=== PATIENT | female | born 1950 | race Caucasian/White ===

== ENCOUNTER 2019-01-12 08:24 | Observation (INO) | payer MEDICARE ==
[~2019-01-12] VITALS: Ht 171.4 cm; Wt 88.9 kg
[~2019-01-12 08:24] MED LIST: CELEXA40 MG PO; DEPAKOTE500 MG PO; SEROQUEL50 MG PO; SUBOXONE 8 MG-1 EACH PO; WELLBUTRIN XL300 MG PO; Z LITHIUM CARBON; Z.0.SEROQUEL300 MG; Z.0.TEGRETOL200 MG
--- OUTSIDE RECORDS SUMMARY | 2019-01-12 08:27 | XMS REPORT ---
[facility] Address Unknown Phone Unavailable Care Team Providers Care Quotation Checker Name Role Phone Unavailable Unavailable Payers Payer Name Policy Type Policy Number Effective Date Expiration Date Problems This patient has no known problems. Allergies, Adverse Reactions, Alerts Allergy Name Allergy Type Status Severity Reaction(s) Onset Date Inactive Date Treating Clinician Comments No Known Allergies DA Active U 2018-07-28 00:00:00 No Known Allergies DA Active U 2013-11-26 00:00:00 Medications This patient has no known medications. Encounters Start Date/Time End Date/Time Encounter Type Admission Type Attending [facility] Facility Care Department Encounter ID 2018-11-03 00:00:00 2018-11-03 00:00:00 Outpatient [facility] [id number] 2018-10-22 06:58:26 2018-10-22 06:58:26 Outpatient [facility] [id number] 2018-09-22 00:00:00 2018-09-22 00:00:00 Outpatient [facility] [id number] 2018-09-22 00:00:00 2018-09-22 00:00:00 Outpatient [facility] [id number] 2018-09-20 00:00:00 2018-09-20 00:00:00 Outpatient [facility] [id number] 2018-09-17 00:00:00 2018-09-17 00:00:00 Outpatient [facility] [id number] 2018-09-17 00:00:00 2018-09-17 00:00:00 Outpatient [facility] [id number] 2018-09-14 00:00:00 2018-09-14 00:00:00 Outpatient [facility] [id number] 2018-09-06 08:07:2018-09-06 08:07:05 Outpatient [facility] [id number] 2018-08-18 00:00:00 2018-08-18 00:00:00 Outpatient [facility] [id number] 2018-07-13 00:00:00 2018-07-13 00:00:00 Outpatient [facility] [id number] 2018-07-07 00:00:00 2018-07-07 00:00:00 Outpatient [facility] [id number] 2018-07-03 01:08:39 2018-07-03 01:08:39 Emergency [facility] [id number] 2018-06-28 07:49:05 2018-06-28 07:49:05 Outpatient [facility] [id number] 2018-06-23 00:00:00 2018-06-23 00:00:00 Outpatient [facility] [id number] 2018-06-04 16:21:06 2018-06-04 16:21:06 Outpatient [facility] [id number] 2018-05-12 10:20:56 2018-05-12 10:20:56 Outpatient [facility] [id number] 2018-04-02 00:00:00 2018-04-02 00:00:00 Outpatient [facility] [id number] 2018-03-17 00:00:00 2018-03-17 00:00:00 Outpatient [facility] [id number] 2017-12-25 00:00:00 2017-12-25 00:00:00 Outpatient [facility] [id number] 2017-12-22 14:34:24 2017-12-22 14:34:24 Outpatient [facility] [id number] 2017-12-16 07:47:32 2017-12-16 07:47:32 Outpatient [facility] [id number] 2017-11-17 00:00:00 2017-11-17 00:00:00 Outpatient [facility] [id number] 2017-11-17 00:00:00 2017-11-17 00:00:00 Outpatient [facility] [id number] 2017-11-11 00:00:00 2017-11-11 00:00:00 Outpatient [facility] [id number] 2017-10-27 00:00:00 2017-10-27 00:00:00 Outpatient [facility] [id number] 2017-10-27 00:00:00 2017-10-27 00:00:00 Outpatient [facility] [id number] 2017-10-19 00:00:00 2017-10-19 00:00:00 Outpatient [facility] [id number] 2017-10-08 07:46:18 2017-10-08 07:46:18 Outpatient [facility] [id number] 2017-10-06 14:53:02 2017-10-06 14:53:02 Outpatient [facility] [id number] 2017-10-05 00:00:00 2017-10-05 00:00:00 Outpatient [facility] [id number] 2017-09-22 00:00:00 2017-09-22 00:00:00 Outpatient [facility] [id number] 2017-09-15 00:00:00 2017-09-15 00:00:00 Outpatient [facility] [id number] 2017-09-09 00:00:00 2017-09-09 00:00:00 Outpatient [facility] [id number] 2017-09-08 13:09:21 2017-09-08 13:09:21 Outpatient [facility] [id number] 2017-09-07 15:54:06 2017-09-07 15:54:06 Outpatient [facility] [id number] 2017-09-01 13:19:47 2017-09-01 13:19:47 Outpatient [facility] [id number] 2017-08-27 11:54:06 2017-08-27 11:54:06 Outpatient [facility] [id number] 2017-08-19 11:17:47 2017-08-19 11:17:47 Outpatient [facility] [id number] 2017-08-19 10:50:18 2017-08-19 10:50:18 Outpatient [facility] [id number] 2017-08-18 14:48:04 2017-08-18 14:48:04 Outpatient [facility] [id number] 2017-08-17 00:00:00 2017-08-17 00:00:00 Outpatient [facility] [id number] 2017-08-12 00:00:00 2017-08-12 00:00:00 Outpatient [facility] [id number] 2017-08-05 12:19:07 2017-08-05 12:19:07 Outpatient [facility] [id number] 2017-07-20 00:00:00 2017-07-20 00:00:00 Outpatient [facility] [id number] 2017-07-17 09:57:17 2017-07-17 09:57:17 Outpatient [facility] [id number] 2017-07-17 09:22:51 2017-07-17 09:22:51 Outpatient [facility] [id number] 2017-07-17 00:00:00 2017-07-17 00:00:00 Outpatient [facility] [id number] 2017-07-15 00:00:00 2017-07-15 00:00:00 Outpatient [facility] [id number] 2017-07-13 00:00:00 2017-07-13 00:00:00 Outpatient [facility] [id number] 2017-07-07 15:32:56 2017-07-07 15:32:56 Outpatient [facility] [id number] 2017-07-07 14:39:53 2017-07-07 14:39:53 Outpatient [facility] [id number] 2017-07-07 00:00:00 2017-07-07 00:00:00 Outpatient [facility] [id number] 2017-05-13 00:00:00 2017-05-13 00:00:00 Outpatient [facility] [id number]
--- OUTSIDE RECORDS SUMMARY | 2019-01-12 08:27 | XMS REPORT | Clinical Summary ---
Author Author [facility] Organization [facility] Address Unknown Phone Unavailable Care Team Providers Care Gas Analyst Name Role Phone Jun Schofield MD PCP Allergies No Known Allergies Medications End Date Status Medication Sig Dispensed Refills Start Date Active amLODIPine (NORVASC) 5 mg Take 1 tablet 90 tablet 1 tabletIndications: by mouth 6 Essential hypertension daily. Active estrogens, conjugated, Take 1 tablet 75 tablet 1 (PREMARIN) 0.625 mg by mouth 7 tabletIndications: Hot daily Take flashes due to menopause for 25 days of the month, then no medications for 5-6 days, repeat each month. Active citalopram (CELEXA) 20 mg 0 tablet 7 Active divalproex (DEPAKOTE) 250 0 mg delayed release tablet 7 Active lidocaine (LIDODERM) 5 % Apply 1 Patch 30 Patch 0 patchIndications: Chronic to skin as 7 right shoulder pain directed daily Leave patch(es) on for up to 12 hours, then 12 hours off.. Active acetaminophen-codeine Take 1 tablet 30 tablet 1 (TYLENOL/CODEINE #3) by mouth 2 8 300-30 mg per times daily tabletIndications: as needed for Chronic midline low back Pain. pain without sciatica, Chronic right shoulder pain, Chronic neck pain Active buprenorphine-naloxone daily. 0 (SUBOXONE) 8-2 mg film Active omeprazole (PRILOSEC) 20 Take 1 180 capsule 3 mg delayed release capsule by 8 capsuleIndications: mouth 2 times Esophagitis, [place] daily one grade B capsule by mouth 30 minutes before first meal; one capsule by mouth 30 minutes before dinner.. Active polyethylene glycol 8L two day 8000 mL 0 (GOLYTELY) 236-22.74-6.74 golytely 8 -5.86 gram oral bowel prep. solutionIndications: Patient had Family history of colon poor prep cancer requiring with 4L.. screening colonoscopy Active esomeprazole (NEXIUM) 40 Take 1 60 capsule 1 mg delayed release capsule by 8 capsuleIndications: mouth every Gastroesophageal reflux morning disease with esophagitis (before breakfast). 06/04/2018 Discontinued Meloxicam 15 mg Take 1 tablet 90 tablet 1 tabletIndications: by mouth 7 Chronic midline thoracic daily as back pain, Pain in joint needed for of right shoulder Pain. 06/04/2018 Discontinued tiZANidine (ZANAFLEX) 4 Take 1 tablet 60 tablet 1 mg tabletIndications: by mouth 3 7 Pain in joint of right times daily shoulder as needed for Muscle Spasms. 02/04/2018 Discontinued esomeprazole (NEXIUM) 40 Take 1 90 capsule 1 mg delayed release capsule by 8 capsuleIndications: mouth every Gastroesophageal reflux morning disease without (before esophagitis breakfast). 02/04/2018 Discontinued promethazine (PHENERGAN) Take 1 tablet 30 tablet 0 25 mg tabletIndications: by mouth 8 Nausea every 8 hours as needed for up to 7 days for Nausea or Vomiting. 06/04/2018 Discontinued esomeprazole (NEXIUM) 40 Take 1 90 capsule 1 mg delayed release capsule by 8 capsuleIndications: mouth every Gastroesophageal reflux morning disease without (before esophagitis breakfast). 02/11/2018 promethazine (PHENERGAN) Take 1 tablet 30 tablet 0 25 mg tabletIndications: by mouth 8 Nausea every 8 hours as needed for up to 7 days for Nausea or Vomiting. 05/27/2018 gabapentin (NEURONTIN) Take 1 45 capsule 0 100 mg capsule by 8 capsuleIndications: Back mouth 3 times pain daily for 15 days. 09/17/2018 Discontinued polyethylene glycol Add lukewarm 4000 mL 0 (GOLYTELY) 236-22.74-6.74 drinking 8 -5.86 gram oral water to the solutionIndications: fill lita (4 Family history of liters) and colorectal cancer, shake. Drink Constipation, unspecified as directed constipation type by your doctor.. 09/17/2018 Discontinued omeprazole (PRILOSEC) 20 Take 1 90 capsule 2 mg delayed release capsule by 8 capsuleIndications: mouth daily. Gastroesophageal reflux disease, esophagitis presence not specified, Chronic gastritis without bleeding, unspecified gastritis type 06/07/2018 polyethylene glycol Mix 17 grams 527 g 3 (GLYCOLAX) 17 gram/dose into 4 to 8 8 oral powderIndications: ounces of Constipation, unspecified water, juice, constipation type soda, tea or coffee and drink as directed, one time a day. 06/14/2018 promethazine (PHENERGAN) Take 1 tablet 30 tablet 1 25 mg tabletIndications: by mouth 8 Nausea every 8 hours as needed for up to 10 days for Nausea. Active Problems Problem Noted Date Gastritis 12/22/2017 Disorder of right rotator cuff 08/08/2016 Health care maintenance 08/08/2016 Visit for fitting of dentures 05/17/2014 Edentulism, complete 05/09/2014 S/P tooth extraction 10/02/2013 Depression 03/15/2013 Decay, teeth 02/24/2013 Broken teeth 02/08/2013 Gingivitis 02/08/2013 OROZCO (dyspnea on exertion) 02/08/2013 Exertional chest pain 02/08/2013 FH: breast cancer 02/08/2013 Alcohol abuse Miscarriage Overview: twins at 7 months Subdural hematoma TBI (traumatic brain injury) Overview: titanium plate in scalp on right Abuse Overview: of vicodin; stopped 2012 Elevated BP PTSD (post-traumatic stress disorder) Family history of breast cancer in sister TMJ (temporomandibular joint syndrome) Encounters Care Team Description Date Type Specialty Carloz Cordova MD NO SHOW ENCOUNTER (Primary Dx) 11/03/2018 Office Visit Neurosurgery 10/28/2018 Travel Narendra Weaver MD Nausea 10/20/2018 Refill Gastroenterology Jun Schofield MD Gastroesophageal reflux disease with esophagitis (Primary Dx) 09/22/2018 Orders Only Family Practice Gifty Martinez NP 09/20/2018 Nurse Only Gastroenterology Anuja Merida CRNA 09/17/2018 Anesthesia Gastroenterology Event Narendra Weaver MD Killoran, Peter V, MD Family history of colon cancer requiring screening colonoscopy (Primary Dx); Esophagitis, [place] grade B; Other acute gastritis without hemorrhage 09/17/2018 Hospital Encounter Mere Diaz NP 09/06/2018 Anesthesia Gastroenterology Event Cassy Mirza NP Rivera, Tammy, NP 09/06/2018 Hospital Anesthesiology Encounter Carloz Cordova MD NO SHOW ENCOUNTER (Primary Dx) 07/07/2018 Office Visit Neurosurgery Riki Webster MD Epigastric pain (Primary Dx); History of gastroesophageal reflux (GERD) 07/03/2018 Emergency Emergency Medicine Scot Duffy RN 07/02/2018 Nurse Triage 06/28/2018 Ancillary Radiology Procedure Narendra Weaver MD Sallier, Kimberly, NP Gastroesophageal reflux disease, esophagitis presence not specified (Primary Dx); Chronic gastritis without bleeding, unspecified gastritis type; Schatzki's ring; Hiatal hernia; Family history of colorectal cancer; Constipation, unspecified constipation type; Nausea 06/04/2018 Office Visit Gastroenterology Carloz Cordova MD Abraham, Shiny, NP Back pain (Primary Dx); Bilateral leg numbness 05/12/2018 Office Visit Neurosurgery Carloz Cordova MD Canceled (Patient Request) 03/17/2018 Office Visit Neurosurgery Celine Clarke RN Gastroesophageal reflux disease without esophagitis; Nausea 02/04/2018 Refill Family Practice after 01/11/2018 Immunizations Name Dates Previously Given Next Due Influenza <Unspecified> 08/17/2017 Influenza Vaccine, 10/06/2017 Seasonal, Injectable PCV 13 (Pnuemococcal 08/18/2017 Conjugated 13 Valent) Family History Medical History Relation Name Comments Cataracts Mother Other Mother Cataracts Sister Relation Name Status Comments Father Mother Sister Social History Date Tobacco Use Types Packs/Day Years Used Never Smoker Smokeless Tobacco: Never Used Tobacco Cessation: Counseling Given: Yes Alcohol Use Drinks/Week oz/Week Comments No 0 Standard 0.0 was drinking all day until passed out at night ; drinks or stopped 2013 equivalent Sex Assigned at Date Recorded Not on file Industry Job Start Date Occupation Not on file Not on file Not on file Travel End Travel History Travel Start No recent travel history available. Last Filed Vital Signs Time Taken Vital Sign Reading 09/17/2018 10:15 AM CDT Blood Pressure 137/75 09/17/2018 10:15 AM CDT Pulse 68 09/17/2018 10:15 AM CDT Temperature 36.7 C (98 F) 09/17/2018 10:15 AM CDT Respiratory Rate 13 09/17/2018 10:15 AM CDT Oxygen Saturation 99% - Inhaled Oxygen - Concentration 09/17/2018 7:00 AM CDT Weight 90.7 kg (200 lb) 09/17/2018 7:00 AM CDT Height 171.5 cm (5' 7.5") 09/17/2018 7:00 AM CDT Body Mass Index 30.86 Plan of Treatment Health Maintenance Due Date Last Done Comments Breast Cancer Scrn 1991 (Yearly) Colorectal Cancer Scrn 09/17/2019 09/17/2018, 08/27/2017 Annual (FIT/FOBT) Age 50 to 75 IMM Pneumococcal Age 65 Addressed 08/18/2017 Overridden with the and Up intention of not completing the topic Goals Goal Patient Associated Recent Progress Patient-Stat Author Goal Type Problems ed? Eat Healthy Lifestyle No Smita Collado Procedures Comments Procedure Name Priority Date/Time Associated Diagnosis H. PYLORI ANTIBODIES, IGG Routine 09/17/2018 Other acute gastritis 9:47 AM CDT without hemorrhage COLONOSCOPY Routine 09/17/2018 Family history of 8:49 AM CDT colorectal cancer Constipation, unspecified constipation type EGD Routine 09/17/2018 Gastroesophageal reflux 8:49 AM CDT disease, esophagitis presence not specified Chronic gastritis without bleeding, unspecified gastritis type Schatzki's ring Hiatal hernia VALPROIC ACID Routine 09/06/2018 8:20 AM CDT CBC/DIFF STAT 09/06/2018 8:20 AM CDT BASIC METABOLIC PANEL STAT 09/06/2018 8:20 AM CDT 12 LEAD EKG STAT 09/06/2018 8:19 AM CDT BMP POC Routine 07/03/2018 12:43 AM CDT TROPONIN I POC Routine 07/03/2018 12:41 AM CDT LIVER PROFILE STAT 07/03/2018 12:37 AM CDT LIPASE STAT 07/03/2018 12:37 AM CDT CBC/DIFF STAT 07/03/2018 12:37 AM CDT 12 LEAD EKG Routine 07/02/2018 10:23 PM CDT U/S ABDOMEN Routine 06/28/2018 Gastroesophageal reflux 8:36 AM CDT disease, esophagitis presence not specified Chronic gastritis without bleeding, unspecified gastritis type after 01/11/2018 Results * H. PYLORI ANTIBODIES, IGG (09/17/2018 9:47 AM CDT) H. pylori, IgG, 0.60 LABORATORY Abs Reference range: 0.00 to 0.79 [employer] Unit: Index Value ADRIANNA (note) Nega tive <0.80 Equi vocal0.80 - 0.89 Posi tive >0.89 Specimen Blood bag - BLOOD Performing Organization Address City/State/Zipcode Phone Number [facility] OF [address] [place] [address] ADRIANNA 145 * EGD (09/17/2018 8:49 AM CDT) TEXT Patient Name JENNIFER SILVA Date of 1950 Record Number [id number] Date/Time of Procedure 09/17/2018, 8:49:00 AM Endoscopist Narendra Martinez MD./Fellow Bakari Brewer INDICATIONS FOR EXAMINATION:Es ophageal reflux - GERD, Family history of malignant neoplasm of gastrointestinal tract. PROCEDURE PERFORMED: EGD - EGD, diagnostic INSTRUMENTS: [id number] LIMITATIONS:None TOLERANCE: Good VISUALIZATION:Good MEDICATIONS:TIVA ASA CLASSIFICATION:III ANALGESIA:Anesthesia PROCEDURE TECHNIQUE: The patient was brought into the endoscopy suite and placed in the left lateral decubitus position.Heart rate and rhythm, blood oxygen saturation, and blood pressure were monitored.Topical anesthesia was not applied. A plastic bite block was placed between the incisors.After adequate sedation, the gastroscope was introduced through the bite block and under direct visualization advanced through the hypopharynx and into the cervical esophagus.The scope was further advanced into the stomach and was insufflated with air.The pylorus was traversed and the scope advanced to duodenum. Upon withdrawal back into the stomach, the tip was retroflexed to examine the proximal stomach.At the conclusion of the exam, air was aspirated from the stomach and the scope withdrawn. FINDINGS: The upper and middle esophagus was normal. LA Grade B distal esophagitis was seen. The GE junction / z-line was noted around 38 cm from the incisors. The stomach distended well with air insufflation. The stomach was easily entered. Mild gastritis was present diffusely. The antrum, angularis, greater and lesser curve and pylorus were otherwise normal. Retroflexed views showed a normal cardia and fundus, as well as a normal angularis. The pylorus was easily traversed. The dudoenal bulb and second portion unremarkable, with normal villi and normal duodenal folds. The scope was then removed and the procedure terminated. ENDOSCOPIC DIAGNOSIS: 1. LA grade B distal esophagitis 2. Mild diffuse gastritis 3. Unremarkable duodenal bulb and duodenum RECOMMENDATIONS: 1. PPI BID for 8 weeks. 2. Check H. Pylori IgG and treat if positive. 3. Avoid NSAIDs. 4. Proceed to colonoscopy COMPLICATIONS: None.None ESTIMATED BLOOD LOSS:None BLOOD PRODUCTS ADMINISTERED:None GRAFT/IMPLANT:None COMMENTS: CPT CODE: 67291 Esophagogastroduodenoscopy, flexible, transoral; diagnostic, including collection of specimen(s) by brushing or washing, when pe ICD CODE: K21.9 Gastro-esophageal reflux disease without esophagitis Z80.0 Family history of malignant neoplasm of digestive organs I was present during the entire viewing portion of theprocedure.I personally reviewed the images and report prepared by the resident or fellow and agree with the findings.After the procedure was completed, the patient was taken to the recovery in good condition. This Procedure was electronically signed of on : 09/17/2018 9:49:14 AM By Narendra Weaver Performing Organization Address City/State/Zipcode Phone Number SMS * COLONOSCOPY (09/17/2018 8:49 AM CDT) TEXT Patient Name JENNIFER SILVA [facility] Date of 1950 Record Number [id number] Date/Time of Procedure 09/17/2018, 8:49:00 AM Endoscopist Narendra Weaver MD Assisting ./Fellow Bakari Brewer INDICATIONS FOR EXAMINATION:Jennifer bonilla history of colon cancer. Screening Colonoscopy. PROCEDURE PERFORMED: Sigmoidoscopy Flexible Sigmoidoscopy - flexible diagnostic Flexible Sigmoidoscopy - flexible diagnostic Colonoscopy - Colon cancer screening, high risk INSTRUMENTS: [id number] LIMITATIONS:None TOLERANCE: Good VISUALIZATION:Good PREP QUALITY: Poor BOSTON BOWEL PREPARATION SCALE (BBPS): Right Colon: 1 Transverse Colon: NA Left Colon: NA Total Score: 1 WITHDRAWL TIME:00:00:05 MEDICATIONS:TIVA ASA CLASSIFICATION:III ANALGESIA:Anesthesia PROCEDURE TECHNIQUE: The patient was brought into the endoscopy suite and placed in the left lateral decubitus position.Heart rate and rhythm, blood oxygen saturation, and blood pressure were monitored.After adequate sedation, a digital rectal exam was performed.The colonoscope was introduced through the anus into the rectum and advanced to the sigmoid colon. Solid stool was seen throughout the extent of exam and therefore the procedure was aborted. FINDINGS: Procedure was aborted due to the presence of solid stool throughout the extent of exam till the sigmoid colon. ENDOSCOPIC DIAGNOSIS: Aborted colonoscopy due to inadequate prep. RECOMMENDATIONS: 1. Repeat colonscopy with MAC anesthesia after GI clinic nurse visit for prep instructions with 2 day prep (8,000mL Golytely). COMPLICATIONS: None.None ESTIMATED BLOOD LOSS:None BLOOD PRODUCTS ADMINISTERED:None GRAFT/IMPLANT:None COMMENTS: CPT CODE: 56426 Sigmoidoscopy, flexible; diagnostic, including collection of specimen(s) by brushing or washing, when performed (separate proced ICD CODE: Z80.0 Family history of malignant neoplasm of digestive organs Z12.11 Special screening for malignant neoplasms of colon Performing Organization Address City/[facility] Phone Number SMS * VALPROIC ACID (09/06/2018 8:20 AM CDT) Valproic Acid 4.8 (L) 50 - 100 ug/mL [facility] Performing Organization Address [place] Phone Number MISYS [facility] * CBC/DIFF (09/06/2018 8:20 AM CDT) Only the most recent of 2 results within the time period is included. WBC 4.6 4.5 - 11.0 K/uL [facility] RBC 4.26 4.20 - 5.40 M/uL [facility] Hemoglobin 11.3 (L) 12.0 - 16.0 g/dL [facility] Hematocrit 35.2 (L) 37.0 - 47.0 % [facility] 83 82 - 92 [facility]L [facility] MCH 26.5 (L) 27.0 - 32.0 pg [facility] MCHC 32.1 32.0 - 36.0 g/dL [facility] RDW 40.1 36.4 - 46.3 fL [facility] Platelet 144 (L) 150 - 400 K/uL [facility] Mean Platelet 10.7 9.4 - 12.4 fL [facility] Volume [facility] Percent NRBC 0.0 [facility] Absolute NRBC 0.00 [facility] Neutrophil 60.3 34.0 - 70.0 % [facility] Lymphocyte 28.1 20.0 - 50.0 % [facility] Monocyte 9.0 5.0 - 12.0 % [facility] Eosinophil 1.5 0.7 - 5.0 % [facility] Basophil 0.9 0.1 - 1.2 % [facility] Pct Immat Gran 0.2 0.0 - 0.5 [facility] Neutrophil, Abs 2.74 1.56 - 6.13 K/uL [facility] Lymphocyte, Abs 1.28 1.18 - 3.74 K/uL [facility] Monocyte, Abs 0.41 (H) 0.24 - 0.36 K/uL [facility] Eosinophil, Abs 0.07 0.04 - 0.36 K/uL [facility] Basophil, Abs 0.04 0.01 - 0.08 K/uL [facility] 2 Absol Immat 0.01 0.00 - 0.03 K/uL [facility] Gran [facility] 2 Specimen Blood Performing Organization Address City/State/Zipcode Phone Number MISYS [facility] * BASIC METABOLIC PANEL (09/06/2018 8:20 AM CDT) CO2 28 21 - 32 mmol/L [facility] Chloride 106 98 - 107 mmol/L [facility] Potassium 3.8 3.50 - 5.10 mmol/L [facility] 2 Sodium 142 136 - 145 mmol/L [facility] Glucose 75 70 - 99 mg/dL [facility] Urea Nitrogen 15 7 - 18 mg/dL [facility] 2 Creatinine 0.67 0.60 - 1.30 mg/dL [facility] 2 Anion Gap 8 [facility] 2 Calcium 8.0 (L) 8.50 - 10.20 mg/dL [facility] 2 GFR, Estimated >60 mL/min/1.73 m2 [facility] 2 GFR, Estim, >60 mL/min/1.73 m2 [facility] 2 Specimen Blood Performing Organization Address City/[facility] Phone Number MISYS [facility] * 12 LEAD EKG (09/06/2018 8:19 AM CDT) 12 LEAD EKG FOR [facility] Test Date:2018-09-06 Pat Name: JENNIFER SILVA Department: Room: Gender: F Web Services Developer: :[id number] Requested By: Order Number: Simona alejandra MD: Aldo GUERRERO Measurements Intervals [place] Rate: 80 P:49 NV: 179 QRS: 33 QRSD: 90 T:42 QT: 382 QTc:441 Interpretive Statements SINUS RHYTHM LOW QRS VOLTAGE IN PRECORDIAL LEADS Incomplete Right Bundle Branch Block Pattern Borderline ECG Electronically Signed On 09-06-18 15:35:56 CDT by Aldo GUERRERO Performing Organization Address [place] Phone Number SMS * BMP POC (07/03/2018 12:43 AM CDT) CO2 POC 26 21 - 32 mmol/L [facility] Chloride POC 103 98 - 107 mmol/L [facility] Potassium POC 3.6 3.50 - 5.10 mmol/L [facility] Sodium POC 144 136 - 145 mmol/L [facility] Glucose POC 86 74 - 106 mg/dL [facility] Urea Nitrogen 13 7 - 18 mg/dL [facility] POC [facility] 1 Creatinine POC 0.6 0.6 - 1.3 mg/dL [facility] 1 Calcium Ionized 1.10 (L) 1.15 - 1.29 mmol/L [facility] POC [facility] 1 Hemoglobin POC 13.9 12.0 - 16.0 g/dL [facility] 1 Hematocrit POC 41.0 37.0 - 47.0 % [facility] 1 GFR, Estimated >60 mL/min/1.73 m2 [facility] GFR, Estim, >60 mL/min/1.73 m2 [facility] Performing Organization Address [facility] Phone Number [facility] * TROPONIN I POC (07/03/2018 12:41 AM CDT) Pathologist [facility] Troponin POC 0.00 0.00 - 0.08 ng/mL [facility] Performing Organization Address [facility] Phone Number [facility] * LIVER PROFILE (07/03/2018 12:37 AM CDT) T Protein 7.7 6.4 - 8.2 g/dL [facility] Albumin 4.2 3.4 - 5.0 g/dL [facility] T Bilirubin 0.3 0.2 - 1.0 mg/dL [facility] 2 Alk Phos 120 (H) 45 - 117 U/L [facility] AST 19 15 - 37 U/L [facility] ALT 25 12 - 78 U/L [facility] D Bilirubin <0.1 0.0 - 0.2 mg/dL [facility] 2 Specimen Blood Performing Organization Address [facility] Phone Number [facility] * LIPASE (07/03/2018 12:37 AM CDT) Lipase 114 73 - 393 U/L [facility] 2 Specimen Blood Performing Organization Address [facility] Phone [facility] * 12 LEAD EKG (07/02/2018 10:23 PM CDT) 12 LEAD EKG FOR [facility] Test Date:2018-07-02 Pat Name: JENNIFER KANARY Department: Room: Gender: F Web Services Developer: [id number] :[id number] 12-11 Requested By: Order Number: Simona alejandra MD: Aldo GUERRERO Measurements Intervals [place] Rate: 79 P:38 NV: 148 QRS: 43 QRSD: 88 T:43 QT: 393 QTc:453 Interpretive Statements SINUS RHYTHM POSSIBLE RIGHT VENTRICULAR CONDUCTION DELAY OTHERWISE NORMAL ECG Electronically Signed On 07-03-18 07:42:14 CDT by Aldo GUERRERO Performing Organization Address City/State/Zipcode Phone Number SMS * U/S ABDOMEN (06/28/2018 8:36 AM CDT) Impressions Performed At IMPRESSION: SMS Slightly increased liver echogenicity may reflect mild steatosis. Otherwise, unremarkable abdominal ultrasound. Signed By: Hamilton Freeman MD, 06/28/2018 8:30 AM Narrative Performed At EXAM: Complete Abdominal Ultrasound SMS INDICATION: LUQ abd pain, referred pain COMPARISON: None. TECHNIQUE: Transverse and longitudinal images of the upper abdomen were obtained. FINDINGS: Liver: Size: 14 cm in the right midclavicular line, normal Appearance: Slightly increased echogenicity, smooth contour Mass: No focal masses Spleen: Size: 10.8 cm in length, normal Echogenicity: Normal Mass: No focal masses Gallbladder: Stones/Sludge: None Wall: 0.2 cm Appearance: No pericholecystic fluid or hydrops. Sonographic Farley's Sign: Negative Bile Ducts: Intrahepatic Ducts: No dilatation Extrahepatic Ducts: Common bile duct measures 0.4 cm, no dilatation Pancreas: Visualized portions of the pancreatic head, neck and proximal body are normal. Right Kidney: Size:9.9 cm Echogenicity:Normal Parenchymal thickness: Normal Collecting System:No hydronephrosis Stone:None Cyst/Mass: None Left Kidney: Size:10.6 cm Echogenicity:Normal Parenchymal thickness: Normal Collecting System:No hydronephrosis Stone:None Cyst/Mass: None Vessels: Aorta: Visualized portions are normal Inferior Vena Cava: Visualized portions are normal Main Portal Vein: 1.2 cm, normal size with hepatopetal flow. Free Fluid: No ascites or pleural effusion Procedure Note Interface, Rad/Mammog In - 06/28/2018 8:36 AM CDT EXAM: Complete Abdominal Ultrasound INDICATION: LUQ abd pain, referred pain COMPARISON: None. TECHNIQUE: Transverse and longitudinal images of the upper abdomen were obtained. FINDINGS: Liver: Size: 14 cm in the right midclavicular line, normal Appearance: Slightly increased echogenicity, smooth contour Mass: No focal masses Spleen: Size: 10.8 cm in length, normal Echogenicity: Normal Mass: No focal masses Gallbladder: Stones/Sludge: None Wall: 0.2 cm Appearance: No pericholecystic fluid or hydrops. Sonographic Farley's Sign: Negative Bile Ducts: Intrahepatic Ducts: No dilatation Extrahepatic Ducts: Common bile duct measures 0.4 cm, no dilatation Pancreas: Visualized portions of the pancreatic head, neck and proximal body are normal. Right Kidney: Size: 9.9 cm Echogenicity: Normal Parenchymal thickness: Normal Collecting System: No hydronephrosis Stone: None Cyst/Mass: None Left Kidney: Size: 10.6 cm Echogenicity: Normal Parenchymal thickness: Normal Collecting System: No hydronephrosis Stone: None Cyst/Mass: None Vessels: Aorta: Visualized portions are normal Inferior Vena Cava: Visualized portions are normal Main Portal Vein: 1.2 cm, normal size with hepatopetal flow. Free Fluid: No ascites or pleural effusion IMPRESSION IMPRESSION: Slightly increased liver echogenicity may reflect mild steatosis. Otherwise, unremarkable abdominal ultrasound. Signed By: Hamilton Freeman MD, 06/28/2018 8:30 AM Performing Organization Address City/State/Zipcode Phone Number [facility] after 01/11/2018 Insurance Type Payer Benefit Subscriber ID Effective Phone Address Plan / Dates Group [employer] [facility] [employer] xxxxxxxx 2018-P [phone] [id number] [place] [address]
[2019-01-12] MEDS ORDERED: SODIUM CHLORIDE 0.9% 1000ML 1,000 ML IV STA (08:53)
--- NOTE | 2019-01-12 08:56 | NUR ---
ER physician at bedside.
[2019-01-12] MEDS ORDERED: ASPIRIN 81 MG CHEW TAB PO ONE (09:00)
--- NOTE | 2019-01-12 09:26 | NUR ---
Assisted pt to the restroom.
--- NOTE | 2019-01-12 09:38 | NUR ---
Echo at bedside.
[2019-01-12 09:49] LABS: BASOPHILS % 0.5 % (0.0-1.0); EOSINOPHILS # (AUTO) 0.1 (0.0-0.4); EOSINOPHILS % 1.3 % (0.0-6.0); HEMATOCRIT 36.2 % (34.2-44.1); LYMPHOCYTES # (AUTO) 1.3 (1.0-3.2); LYMPHOCYTES % 21.4 % (18.0-39.1); MEAN CORPUSCULAR HEMOGLOBIN 26.7 pg (28-32); MEAN CORPUSCULAR HGB CONC 33.1 g/dL (31-35); MEAN CORPUSCULAR VOLUME 80.6 fL (81-99); MONOCYTES # (AUTO) 0.6 (0.2-0.8); MONOCYTES % 8.9 % (4.4-11.3); NEUTROPHILS # (AUTO) 4.2 (2.1-6.9); NEUTROPHILS % 67.7 % (38.7-80.0); PLATELET COUNT 174 x10e3/uL (140-360); RED BLOOD COUNT 4.49 x10e6/uL (3.6-5.1); RED CELL DISTRIBUTION WIDTH 13.4 % (11.7-14.4)
--- NOTE | 2019-01-12 09:53 | NUR ---
Call placed to daughter per pt's request to update the daughter on the pt's status.
[2019-01-12 10:08] LABS: ALANINE AMINOTRANSFERASE 16 IU/L (0-55); ALBUMIN 3.7 g/dL (3.5-5.0); ALBUMIN/GLOBULIN RATIO 1.3 (0.8-2.0); ALKALINE PHOSPHATASE 105 IU/L (40-150); ANION GAP 13.8 mmol/L (8-16); BLOOD UREA NITROGEN 13 mg/dL (7-26); BUN/CREATININE RATIO 17 (6-25); CALCIUM 9.4 mg/dL (8.4-10.2); CARBON DIOXIDE 26 mmol/L (22-29); CHLORIDE 100 mmol/L (98-107); CREATINE KINASE 70 IU/L (29-168); CREATININE, SERUM 0.76 mg/dL (0.57-1.11); EST GLOMERULAR FILTRATION RATE > 60 ML/MIN (60-); GLUCOSE 97 mg/dL (74-118); POTASSIUM 3.8 mmol/L (3.5-5.1); SODIUM 136 mmol/L (136-145)
--- NOTE | 2019-01-12 10:10 | Diagnostic Imaging Report ---
History: Syncope, hematoma important Comparison studies:None Technique: Axial images were obtained from the brain and cervical spine. Coronal and sagittal images reconstructed from the axial data. Intravenous contrast: None Dose modulation, iterative reconstruction, and/or weight based adjustment of the mA/kV was utilized to reduce the radiation dose to as low as reasonably achievable. Findings: Head CT: Scalp/skull: Right frontal and supraorbital scalp hematoma. No fractures, blastic or lytic lesions. Brain sulci: Appropriate for age. Ventricles: Normal in size and configuration. No hydrocephalus. Extra-axial spaces: No masses. No fluid collections. Parenchyma: No abnormal densities. No masses, hemorrhage, acute or chronic cortical vascular insults. Sellar/suprasellar region: No abnormalities. Craniocervical junction: Patent foramen magnum. No Chiari one malformation. Cervical spine CT: Fractures: None. Soft tissues: No gross abnormalities. Atlantoaxial articulation: Mild degenerative changes without acute abnormality. Alignment: Straightening of the cervical spine lordosis. No scoliosis. Cervicomedullary junction: No abnormalities. Patent foramen magnum. Vertebrae: No infection or neoplasm. Degenerative changes: Uncinate process and facet hypertrophy at C5-6 results in moderate right and mild left foraminal narrowing without significant canal stenosis. Grossly patent remaining foramina. Incidental findings: None. Impression: Head CT: 1. No acute intracranial abnormality.. 2. Right frontal and supraorbital scalp hematoma without underlying fracture. Cervical spine CT: 1. No acute abnormalities. 2. Cannot exclude ligament, spinal cord and or vascular abnormalities on the basis of this examination. Signed by: DR Kee Yip M.D. on 01/12/2019 10:06 AM
[2019-01-12] MEDS ORDERED: MORPHINE SULFATE 2 MG/ML SYR 1ML IV PRN (10:30)
[2019-01-12] MEDS ORDERED: ONDANSETRON HCL INJ 2MG/ML 2ML 2 MG/ML VIAL IV PRN (10:30)
[2019-01-12] MEDS ORDERED: SODIUM CHLORIDE FLUSH 10 ML SYR INJ PRN (10:30)
--- OUTSIDE RECORDS SUMMARY | 2019-01-12 11:00 | XMS REPORT | Clinical Summary ---
Author Author [facility] Organization [facility] Address Unknown Phone Unavailable Care Team Providers Care Grain Operations Manager Name Role Phone Jun Schofield MD PCP [...] by 8 capsuleIndications: mouth 2 times Esophagitis, Lyles daily one grade B capsule by mouth [...] cancer requiring screening colonoscopy (Primary Dx); Esophagitis, Lyles grade B; Other acute gastritis without hemorrhage [...] BLOOD Performing Organization Address City/State/Zipcode Phone Number [employer] OF [address] [facility] [place] [address] ADRIANNA 145 * EGD (09/17/2018 8:49 AM CDT) TEXT Patient Name JENNIFER SILVA Date of 1950 Record Number [id number] Date/Time of Procedure 09/17/2018, 8:49:00 AM Endoscopist Narendra Martinez MD./Fellow Bakari Brewer INDICATIONS FOR EXAMINATION:Es ophageal reflux - GERD, Family history of malignant neoplasm of gastrointestinal tract. PROCEDURE PERFORMED: EGD - EGD, diagnostic INSTRUMENTS: [id number] LIMITATIONS:None TOLERANCE: Good VISUALIZATION:Good MEDICATIONS:TIVA ASA CLASSIFICATION:III [...] BLOOD PRODUCTS ADMINISTERED:None GRAFT/IMPLANT:None COMMENTS: CPT CODE: [id number] Esophagogastroduodenoscopy, flexible, transoral; diagnostic, including collection of [...] AM CDT) TEXT Patient Name JENNIFER SILVA [facility] Date of 1950 Record Number [id number] Date/Time of Procedure 09/17/2018, 8:49:00 AM Endoscopist Narendra Weaver MD Assisting ./Fellow Bakari Brewer INDICATIONS FOR EXAMINATION:Jennifer bonilla history of colon cancer. Screening Colonoscopy. PROCEDURE PERFORMED: Sigmoidoscopy Flexible Sigmoidoscopy - flexible diagnostic Flexible Sigmoidoscopy - flexible diagnostic Colonoscopy - Colon cancer screening, high risk INSTRUMENTS: [id number] LIMITATIONS:None TOLERANCE: Good VISUALIZATION:Good PREP QUALITY: Poor [...] BLOOD PRODUCTS ADMINISTERED:None GRAFT/IMPLANT:None COMMENTS: CPT CODE: [id number] Sigmoidoscopy, flexible; diagnostic, including collection of specimen(s) by brushing or washing, when performed (separate proced ICD CODE: Z80.0 Family history of malignant neoplasm of digestive organs Z12.11 Special screening for malignant neoplasms of colon Performing Organization Address City/[facility] Phone Number SMS * VALPROIC ACID (09/06/2018 8:20 AM CDT) Valproic Acid 4.8 (L) 50 - 100 ug/mL [facility] 2 Performing Organization Address City/[facility] Phone Number [facility] * CBC/DIFF (09/06/2018 8:20 AM CDT) Only the most recent of 2 results within the time period is included. WBC 4.6 4.5 - 11.0 K/uL [facility] 2 RBC 4.26 4.20 - 5.40 M/uL [facility] 2 Hemoglobin 11.3 (L) 12.0 - 16.0 g/dL [facility] 2 Hematocrit 35.2 (L) 37.0 - 47.0 % [facility] MCV 83 82 - 92 fL [facility] MCH 26.5 (L) 27.0 - 32.0 pg [facility] MCHC 32.1 32.0 - 36.0 g/dL [facility] RDW 40.1 36.4 - 46.3 fL [facility] Platelet 144 (L) 150 - 400 K/uL [facility] Mean Platelet 10.7 9.4 - 12.4 fL [facility] Volume [facility] 2 Percent NRBC 0.0 [facility] Absolute NRBC 0.00 [facility] Neutrophil 60.3 34.0 - 70.0 % [facility] Lymphocyte 28.1 20.0 - 50.0 % [facility] Monocyte 9.0 5.0 - 12.0 % [facility] Eosinophil 1.5 0.7 - 5.0 % [facility] Basophil 0.9 0.1 - 1.2 % [facility] Pct Immat Gran 0.2 0.0 - 0.5 [facility] Neutrophil, Abs 2.74 1.56 - 6.13 K/uL [facility] Lymphocyte, Abs 1.28 1.18 - 3.74 K/uL [facility] Monocyte, Abs 0.41 (H) 0.24 - 0.36 K/uL [facility] Eosinophil, Abs 0.07 0.04 - 0.36 K/uL [facility] 2 Basophil, Abs 0.04 0.01 - 0.08 K/uL [facility] 2 Absol Immat 0.01 0.00 - 0.03 K/uL [facility] Gran [facility] 2 Specimen Blood Performing Organization Address City/State/Zipcode Phone Number MISYS [facility] 2 * BASIC METABOLIC PANEL (09/06/2018 8:20 AM CDT) CO2 28 21 - 32 mmol/L [facility] 2 Chloride 106 98 - 107 mmol/L [facility] 2 Potassium 3.8 3.50 - 5.10 mmol/L [facility] 2 Sodium 142 136 - 145 mmol/L [facility] 2 Glucose 75 70 - 99 mg/dL [facility] 2 Urea Nitrogen 15 7 - 18 mg/dL [facility] 2 Creatinine 0.67 0.60 - 1.30 mg/dL [facility] 2 Anion Gap 8 [facility] 2 Calcium 8.0 (L) 8.50 - 10.20 mg/dL [facility] 2 GFR, Estimated >60 mL/min/1.73 m2 [facility] 2 GFR, Estim, >60 mL/min/1.73 m2 [facility] Afr-Am [facility] 2 Specimen Blood Performing Organization Address City/[facility] Phone Number MISYS [facility] 2 * 12 LEAD EKG (09/06/2018 8:19 AM CDT) 12 LEAD EKG FOR [facility] Test Date:2018-09-06 Pat Name: JENNIFER SILVA Department: Room: Gender: F Child Support Case Officer: :[id number] Requested By: Order Number: Simona alejandra MD: Aldo GUERRERO Measurements Intervals [place] Rate: 80 P:49 MS: 179 QRS: 33 QRSD: 90 T:42 QT: 382 QTc:441 Interpretive Statements SINUS RHYTHM LOW QRS VOLTAGE IN PRECORDIAL LEADS Incomplete Right Bundle Branch Block Pattern Borderline ECG Electronically Signed On 09-06-18 15:35:56 CDT by Aldo GUERRERO Performing Organization Address City[facility] Phone Number SMS * BMP POC (07/03/2018 12:43 AM CDT) CO2 POC 26 21 - 32 mmol/L [facility] 1 Chloride POC 103 98 - 107 mmol/L [facility] 1 Potassium POC 3.6 3.50 - 5.10 mmol/L [facility] 1 Sodium POC 144 136 - 145 mmol/L [facility] 1 Glucose POC 86 74 - 106 mg/dL [facility] 1 Urea Nitrogen 13 7 - 18 mg/dL [facility] POC [facility] 1 Creatinine POC 0.6 0.6 - 1.3 mg/dL [facility] 1 Calcium Ionized 1.10 (L) 1.15 - 1.29 mmol/L [facility] POC [facility] 1 Hemoglobin POC 13.9 12.0 - 16.0 g/dL [facility] 1 Hematocrit POC 41.0 37.0 - 47.0 % [facility] 1 GFR, Estimated >60 mL/min/1.73 m2 [facility] 1 GFR, Estim, >60 mL/min/1.73 m2 [facility] Afr-Am [facility] 1 Performing Organization Address [facility] Phone Number [facility] * TROPONIN I POC (07/03/2018 12:41 AM CDT) Pathologist [facility] Troponin POC 0.00 0.00 - 0.08 ng/mL [facility] 1 Performing Organization Address [facility] Phone Number [facility] * LIVER PROFILE (07/03/2018 12:37 AM CDT) T Protein 7.7 6.4 - 8.2 g/dL [facility] 2 Albumin 4.2 3.4 - 5.0 g/dL [facility] 2 T Bilirubin 0.3 0.2 - 1.0 mg/dL [facility] 2 Alk Phos 120 (H) 45 - 117 U/L [facility] 2 AST 19 15 - 37 U/L [facility] 2 ALT 25 12 - 78 U/L [facility] 2 D Bilirubin <0.1 0.0 - 0.2 mg/dL [facility] 2 Specimen Blood Performing Organization Address [facility] Phone Number [facility] * LIPASE (07/03/2018 12:37 AM CDT) Lipase 114 73 - 393 U/L [facility] 2 Specimen Blood Performing Organization Address [facility] Phone Number [facility] * 12 LEAD EKG (07/02/2018 10:23 PM CDT) 12 LEAD EKG FOR [facility] Test Date:2018-07-02 Pat Name: JENNIFER KANARY Department: Room: Gender: F Child Support Case Officer: [id number] :[id number] 12-11 Requested By: Order Number: Simona alejandra MD: Aldo GUERRERO Measurements Intervals [place] Rate: 79 P:38 MS: 148 QRS: 43 QRSD: 88 T:43 QT: [...] AM Performing Organization Address City/State/Zipcode Phone Number [facility] after 01/11/2018 Insurance Type Payer Benefit Subscriber ID Effective Phone Address Plan / Dates Group [email or web address] [facility] [employer] xxxxxxxx 2018-P [phone] [address] [place] [address]
--- NOTE | 2019-01-12 12:47 | NUR ---
Pt noted to be resting comfortably in bed at this time with eyes closed.
--- NOTE | 2019-01-12 12:50 | NUR ---
Assisted the pt to the bathroom.
--- NOTE | 2019-01-12 13:44 | NUR ---
Pt noted to be resting comfortably in bed at this time with eyes closed.
[2019-01-12 13:47] LABS: CHOL/HDL RATIO 2.8 (3.0-3.6)
[2019-01-12] MEDS: MORPHINE SULFATE INJ 4 MG/ML INJ 1ML IV PRN ×2 (13:49→19:52)
[2019-01-12 14:07] LABS: THYROID STIMULATING HORMONE 2.818 uIU/mL (0.350-4.940)
[2019-01-12 15:14] VITALS: BP 135/73
[2019-01-12 15:16] VITALS: BP 135/73
[2019-01-12 15:20] VITALS: BP 135/73
--- NOTE | 2019-01-12 15:31 | NUR ---
patient received via . see admit assess. sinus rhythm. 2x3 inch bruise to right forehead with no drainage and skin is intact. vitals stable with no distress.
--- NOTE | 2019-01-12 19:03 | NUR ---
received report from previous nurse. patient lying in bed. call mena within reach.
[2019-01-12 19:14] LABS: CREATINE KINASE MB 1.8 ng/mL (0-5.0)
[2019-01-12 20:00] VITALS: BP 162/87
[2019-01-13] VITALS: BP 130/58
[2019-01-13 00:20] VITALS: BP 130/58
[2019-01-13] MEDS: MORPHINE SULFATE INJ 4 MG/ML INJ 1ML IV PRN ×3 (00:29→16:49)
[2019-01-13 03:04] LABS: CREATINE KINASE 60 IU/L (29-168)
[2019-01-13 05:37] LABS: BASOPHILS % 0.3 % (0.0-1.0); EOSINOPHILS # (AUTO) 0.1 (0.0-0.4); EOSINOPHILS % 2.3 % (0.0-6.0); HEMATOCRIT 35.1 % (34.2-44.1); HEMOGLOBIN 11.3 g/dL (12.0-16.0); LYMPHOCYTES # (AUTO) 1.6 (1.0-3.2); LYMPHOCYTES % 25.6 % (18.0-39.1); MEAN CORPUSCULAR HEMOGLOBIN 26.5 pg (28-32); MEAN CORPUSCULAR HGB CONC 32.2 g/dL (31-35); MEAN CORPUSCULAR VOLUME 82.4 fL (81-99); MONOCYTES # (AUTO) 0.5 (0.2-0.8); MONOCYTES % 8.1 % (4.4-11.3); NEUTROPHILS # (AUTO) 3.9 (2.1-6.9); NEUTROPHILS % 63.4 % (38.7-80.0); PLATELET COUNT 164 x10e3/uL (140-360); RED BLOOD COUNT 4.26 x10e6/uL (3.6-5.1); RED CELL DISTRIBUTION WIDTH 13.5 % (11.7-14.4)
[2019-01-13 06:09] LABS: ALANINE AMINOTRANSFERASE 14 IU/L (0-55); ALBUMIN 3.3 g/dL (3.5-5.0); ALBUMIN/GLOBULIN RATIO 1.3 (0.8-2.0); ALKALINE PHOSPHATASE 97 IU/L (40-150); BLOOD UREA NITROGEN 12 mg/dL (7-26); BUN/CREATININE RATIO 16 (6-25); CALCIUM 8.7 mg/dL (8.4-10.2); CARBON DIOXIDE 24 mmol/L (22-29); EST GLOMERULAR FILTRATION RATE > 60 ML/MIN (60-); GLUCOSE 99 mg/dL (74-118); POTASSIUM 3.7 mmol/L (3.5-5.1); SODIUM 134 mmol/L (136-145)
--- NOTE | 2019-01-13 06:29 | NUR ---
History and PHysical: DOS 01/12/19 at 6pm cc: passing out HPI; 68yoF, PCP , got up to use bathroom, awoke on floor; did not have symptoms prior to passing out. no loss of urine/stool/tongue biting. no prior. PMH: SDH 1999, peripheral edema PHSx: hysterectomy, brain-right scalp plate, shoulder, Allergies; see emr Fh/SH; no cigs/etoh/illicits Meds; see emr ROS: no f/c/s//N/V/D/ADAMES/vision changes/cp/sob/skin rash v/s; revd PE: tired appearing anicteric ns1s2 mod bs soft nt nd TRACE LEG EDEMA skin dry flat affect labs/meds; re'vd A/P: 68yoF Syncope- echo normal LVEF; carotid u/s negative, PT consult; Peripheral edema Right frontal scalp hematoma Obesity BMI 32.9 PLAN 1.CT only scalp hematoma 2.Echo and U/s carotids negative 3.PT consult; 4.Lipid panel 5.SCD dispo: f/u DOS 01/12/19 at 6pm MD WINIFRED, PhD.
[2019-01-13] MEDS ORDERED: PRAVASTATIN SOD20 MG PO (06:31)
[2019-01-13] MEDS ORDERED: ASPIRIN ENTERI325 MG PO (06:31)
--- NOTE | 2019-01-13 07:21 | NUR ---
Report given to oncoming nurse. No pain or distress. Call light within reach.
[2019-01-13 07:26] VITALS: BP 122/69
[2019-01-13 07:55] LABS: ANION GAP 11.8 mmol/L (8-16); CHLORIDE 107 mmol/L (98-107); CREATININE, SERUM 0.73 mg/dL (0.57-1.11)
[2019-01-13] MEDS ORDERED: ASPIRIN 81 MG ENTERIC COATED PO SCH (09:00)
--- NOTE | 2019-01-13 09:05 | NUR ---
patient up in bed, tolerated with breakfast, not in any distress, call light in reach
--- NOTE | 2019-01-13 09:06 | Diagnostic Imaging Report ---
Exam: Right shoulder 2 views History: Fall, pain Comparison: None. Findings: The bones are diffusely osteopenic. Surgical anchors within the right humeral head. No acute, displaced fracture or dislocation. Large degenerative or posttraumatic osteophytes along the superolateral humeral head. Acromioclavicular joint is intact. Healed fracture deformity of the lateral right fifth rib. Soft tissues unremarkable. Impression: No acute displaced fracture or dislocation. Signed by: Dr. Darryl Snyder M.D. on 01/13/2019 9:02 AM
--- NOTE | 2019-01-13 09:09 | Diagnostic Imaging Report ---
Exam: Facial bones History: Trauma to right side of face Comparison: None. Findings: Surgical plate and screw construct along the right temporal calvarium. No acute, displaced fracture or dislocation. Paranasal sinuses and mastoid air cells are well aerated. Impression: No acute osseous abnormality. Maxillofacial CT is more sensitive for detection of subtle facial fractures and should be considered for further evaluation if warranted. Signed by: Dr. Darryl Snyder M.D. on 01/13/2019 9:05 AM
[2019-01-13 11:17] VITALS: BP 119/57
[2019-01-13 11:45] VITALS: BP 119/57
[2019-01-13 15:09] VITALS: BP 114/53
--- NOTE | 2019-01-13 18:12 | NUR ---
recvd call from Dr George, did read back x ray results, new order recvd patient can be discharged home, no prescriptions as per Dr George and can f/up with his pcp next week
--- NOTE | 2019-01-13 19:57 | NUR ---
Received report from previous shift nurse. Patient was in no pain or distress. She was discharged as per Dr. George orders. She left via wheelchair. IV and catheter was taken out. Discharge information and prescriptions were told and given to the patient.
[2019-01-13] MEDS ORDERED: PRAVASTATIN 20 MG TAB PO SCH (21:00)
== END 2019-01-13 19:55 | disposition home or self-care (01) ==
LOC: ER 08:24 → ERHOLD 10:17 → IMCU 14:57
PROVIDERS: ADMIT Internal Medicine; ATTEND Internal Medicine
DX: R55 Syncope and collapse (principal); S00.03XA Contusion of scalp, initial encounter; W18.39XA Other fall on same level, initial encounter; Y93.89 Activity, other specified; Y92.019 Unspecified place in single-family (private) house as the place of occurrence of the external cause; R60.9 Edema, unspecified; E66.9 Obesity, unspecified; Z68.32 Body mass index [BMI] 32.0-32.9, adult
CPT/HCPCS: 36415 ×2; 70150; 70450; 72125; 73030; 80053 ×2; 80061; 82550 ×2; 82553 ×2; 84443; 84484 ×2; 85025 ×2; 93005 ×2; 93306; 93880; 97161; 99284; G0378 ×2; J2270 ×2; J2405; J7030

== ENCOUNTER 2019-04-17 10:06 | Emergency (ER) | payer MEDICARE ==
[~2019-04-17] VITALS: Ht 171.4 cm; Wt 88.9 kg
[~2019-04-17 10:06] MED LIST changes: +ASPIRIN ENTERI325 MG PO; +PRAVASTATIN SOD20 MG PO
--- OUTSIDE RECORDS SUMMARY | 2019-04-17 10:10 | XMS REPORT | Clinical Summary ---
Author Author [facility] Organization [facility] Address Unknown Phone Unavailable Care Team Providers Care Mushroom Spawn Maker Name Role Phone Jun Schofield MD PCP [...] by 8 capsuleIndications: mouth 2 times Esophagitis, Rice daily one grade B capsule by mouth [...] daily shoulder as needed for Muscle Spasms. 06/04/2018 Discontinued esomeprazole (NEXIUM) 40 Take 1 90 capsule 1 mg delayed release capsule by 8 capsuleIndications: mouth every Gastroesophageal reflux morning disease without (before esophagitis breakfast). 05/27/2018 gabapentin (NEURONTIN) Take 1 45 capsule [...] cancer requiring screening colonoscopy (Primary Dx); Esophagitis, Rice grade B; Other acute gastritis without hemorrhage [...] Visit Gastroenterology Carloz Cordova MD Abraham, Shiny, DOMINIK Back pain (Primary Dx); Bilateral leg numbness 05/12/2018 Office Visit Neurosurgery after 04/16/2018 Immunizations Name Administration Dates Next Due Influenza <Unspecified> 08/17/2017 Influenza Vaccine, 10/06/2017 Seasonal, Injectable PCV 13 (Pnuemococcal 08/18/2017 Conjugated 13 Valent) Family History Medical History Relation Name Comments Cataracts Mother Other Mother Cataracts Sister Relation Name Status Comments Father Mother Sister Social History Date Tobacco Use Types Packs/Day Years Used Never Smoker Smokeless Tobacco: Never Used Tobacco Cessation: Counseling Given: Yes Drinks/Week oz/Week Comments Alcohol Use 0 Standard drinks or equivalent 0.0 was drinking all day until passed out at night ; stopped 2012 No Sex Assigned at Date Recorded Not on file Industry Job Start Date Occupation Not on file Not on file Not on file Travel End Travel History Travel Start No recent travel history available. Last Filed Vital Signs Reading Time Taken Comments Vital Sign 137/75 09/17/2018 10:15 AM CDT Blood Pressure 68 09/17/2018 10:15 AM CDT Pulse 36.7 C (98 F) 09/17/2018 10:15 AM CDT Temperature 13 09/17/2018 10:15 AM CDT Respiratory Rate 99% 09/17/2018 10:15 AM CDT Oxygen Saturation - - Inhaled Oxygen Concentration 90.7 kg (200 lb) 09/17/2018 7:00 AM CDT Weight 171.5 cm (5' 7.5") 09/17/2018 7:00 AM CDT Height 30.86 09/17/2018 7:00 AM CDT Body Mass Index Plan of Treatment Health Maintenance Due Date Last Done Comments Breast Cancer Scrn 1991 (Yearly) Colorectal Cancer Scrn 09/17/2019 09/17/2018, 08/27/2017 Annual (FIT/FOBT) Age 50 to 75 IMM Pneumococcal Age 65 Addressed 08/18/2017 Overridden with the and Up intention of not completing the topic Goals Goal Patient Associated Recent Progress Patient-Stat Author Goal Type Problems ed? Eat Healthy Lifestyle Smita Mora Procedures Comments Procedure Name Priority Date/Time Associated [...] gastritis without bleeding, unspecified gastritis type after 04/16/2018 Results * H. PYLORI ANTIBODIES, IGG (09/17/2018 9:47 AM CDT) H. pylori, IgG, 0.60 LABORATORY Abs Reference range: 0.00 to 0.79 [employer] Unit: Index Value ADRIANNA (note) Nega tive <0.80 Equi vocal0.80 - 0.89 Posi tive >0.89 Specimen Blood bag - BLOOD Performing Organization Address City/State/Zipcode Phone Number [facility] [employer] [facility] [address] [facility], [place] [address] ADRIANNA 145 * EGD (09/17/2018 8:49 AM CDT) TEXT Patient Name JENNIFER SILVA [facility] Date of 1950 Record Number [id number] Date/Time of Procedure 09/17/2018, 8:49:00 AM Endoscopist Narendra Weaver MD Assisting MD./Fellow Bakari Brewer INDICATIONS FOR EXAMINATION:Es ophageal reflux - GERD, Family history of malignant neoplasm of gastrointestinal tract. PROCEDURE PERFORMED: EGD - EGD, diagnostic INSTRUMENTS: [id number] LIMITATIONS:None TOLERANCE: Good VISUALIZATION:Good MEDICATIONS:TIVA ASA CLASSIFICATION:III [...] BLOOD PRODUCTS ADMINISTERED:None GRAFT/IMPLANT:None COMMENTS: CPT CODE: 88560 Esophagogastroduodenoscopy, flexible, transoral; diagnostic, including collection of [...] : 09/17/2018 9:49:14 AM By Narendra Weaver Specimen Performing Organization Address City/State/Zipcode Phone Number SMS * COLONOSCOPY (09/17/2018 8:49 AM CDT) TEXT Patient Name JENNIFER SILVA [facility] Date of 1950 Record Number [id number] Date/Time of Procedure 09/17/2018, 8:49:00 AM Endoscopist Narendra Martinez MD./Fellow Bakari Brewer INDICATIONS FOR EXAMINATION:[facility] history of colon cancer. Screening Colonoscopy. PROCEDURE PERFORMED: Sigmoidoscopy Flexible Sigmoidoscopy - flexible diagnostic Flexible Sigmoidoscopy - flexible diagnostic Colonoscopy - Colon cancer screening, high risk INSTRUMENTS: [id number] LIMITATIONS:None TOLERANCE: Good VISUALIZATION:Good PREP QUALITY: Poor [...] BLOOD PRODUCTS ADMINISTERED:None GRAFT/IMPLANT:None COMMENTS: CPT CODE: 86580 Sigmoidoscopy, flexible; diagnostic, including collection of specimen(s) by brushing or washing, when performed (separate proced ICD CODE: Z80.0 Family history of malignant neoplasm of digestive organs Z12.11 Special screening for malignant neoplasms of colon Specimen Performing Organization Address City/State/Zipcode Phone Number SMS * VALPROIC ACID (09/06/2018 8:20 AM CDT) Valproic Acid 4.8 (L) 50 - 100 ug/mL [facility] Specimen Performing Organization Address City/State/[facility] Phone Number [facility] * CBC/DIFF (09/06/2018 8:20 AM CDT) Only the most recent of 2 results within the time period is included. WBC 4.6 4.5 - 11.0 K/uL [facility] RBC 4.26 4.20 - 5.40 M/uL [facility] Hemoglobin 11.3 (L) 12.0 - 16.0 g/dL [facility] Hematocrit 35.2 (L) 37.0 - 47.0 % [facility] MCV 83 82 - 92 fL [facility] MCH 26.5 (L) 27.0 - 32.0 pg [facility] MCHC 32.1 32.0 - 36.0 g/dL [facility] RDW 40.1 36.4 - 46.3 fL [facility] Platelet 144 (L) 150 - 400 K/uL [facility] Mean Platelet 10.7 9.4 - 12.4 fL [facility] Volume [facility] Percent NRBC 0.0 [facility] Absolute NRBC 0.00 [facility] Neutrophil 60.3 34.0 - 70.0 % [facility] 2 Lymphocyte 28.1 20.0 - 50.0 % [facility] Monocyte 9.0 5.0 - 12.0 % [facility] Eosinophil 1.5 0.7 - 5.0 % [facility] 2 Basophil 0.9 0.1 - 1.2 % [facility] 2 Pct Immat Gran 0.2 0.0 - 0.5 [facility] 2 Neutrophil, Abs 2.74 1.56 - 6.13 K/uL [facility] 2 Lymphocyte, Abs 1.28 1.18 - 3.74 K/uL [facility] 2 Monocyte, Abs 0.41 (H) 0.24 - 0.36 K/uL [facility] 2 Eosinophil, Abs 0.07 0.04 - 0.36 K/uL [facility] 2 Basophil, Abs 0.04 0.01 - 0.08 K/uL [facility] 2 Absol Immat 0.01 0.00 - 0.03 K/uL [facility] Gran [facility] 2 Specimen Blood Performing Organization Address [facility] Phone Number MISYS [facility] * BASIC METABOLIC PANEL (09/06/2018 8:20 AM CDT) [facility] CO2 28 21 - 32 mmol/L [facility] 2 Chloride 106 98 - 107 mmol/L [facility] 2 Potassium 3.8 3.50 - 5.10 mmol/L [facility] 2 Sodium 142 136 - 145 mmol/L [facility] 2 Glucose 75 70 - 99 mg/dL [facility] 2 Urea Nitrogen 15 7 - 18 mg/dL [facility] 2 Creatinine 0.67 0.60 - 1.30 mg/dL [facility] 2 Anion Gap 8 [facility] 2 Calcium 8.0 (L) 8.50 - 10.20 mg/dL [facility] 2 GFR, Estimated >60 mL/min/1.73 m2 [facility] 2 GFR, Estim, >60 mL/min/1.73 m2 [facility] Afr-Am [facility] 2 Specimen Blood Performing Organization Address [facility] Phone Number [facility] 2 * 12 LEAD EKG (09/06/2018 8:19 AM CDT) 12 LEAD EKG FOR [facility] Iggy Saucedo [facility] Test Date:2018-09-06 Pat Name: JENNIFER SILVA Department: Room: Gender: F Linderman Machine Operator: ARNOLDO :1950-1 12-11 Requested By: Order Number: Simona alejandra MD: Aldo GUERRERO Measurements Intervals [place] Rate: 80 P:49 FL: 179 QRS: 33 QRSD: 90 T:42 QT: 382 QTc:441 Interpretive Statements SINUS RHYTHM LOW QRS VOLTAGE IN PRECORDIAL LEADS Incomplete Right Bundle Branch Block Pattern Borderline ECG Electronically Signed On 09-06-18 15:35:56 CDT by Aldo GUERRERO Specimen Performing Organization Address City/[facility] Phone Number [facility] * BMP POC (07/03/2018 12:43 AM CDT) CO2 POC 26 21 - 32 mmol/L [facility] Chloride POC 103 98 - 107 mmol/L [facility] Potassium POC 3.6 3.50 - 5.10 mmol/L [facility] 1 Sodium POC 144 136 - 145 mmol/L [facility] 1 Glucose POC 86 74 - 106 mg/dL [facility] 1 Urea Nitrogen 13 7 - 18 mg/dL [facility] POC [facility] 1 Creatinine POC 0.6 0.6 - 1.3 mg/dL [facility] 1 Calcium Ionized 1.10 (L) 1.15 - 1.29 mmol/L [facility] POC [facility] 1 Hemoglobin POC 13.9 12.0 - 16.0 g/dL [facility] 1 Hematocrit POC 41.0 37.0 - 47.0 % [facility] 1 GFR, Estimated >60 mL/min/1.73 m2 [facility] 1 GFR, Estim, >60 mL/min/1.73 m2 [facility] Afr-Am [facility] 1 Specimen Performing Organization Address City/[facility] Phone Number [facility] * TROPONIN I POC (07/03/2018 12:41 AM CDT) Troponin POC 0.00 0.00 - 0.08 ng/mL [facility] 1 Specimen Performing Organization Address [facility] Phone Number MISYS [facility] * LIVER PROFILE (07/03/2018 12:37 AM CDT) T Protein 7.7 6.4 - 8.2 g/dL [facility] 2 Albumin 4.2 3.4 - 5.0 g/dL [facility] 2 T Bilirubin 0.3 0.2 - 1.0 mg/dL [facility] 2 Alk Phos 120 (H) 45 - 117 U/L [facility] 2 AST 19 15 - 37 U/L [facility] 2 ALT 25 12 - 78 U/L [facility] 2 D Bilirubin <0.1 0.0 - 0.2 mg/dL [facility] 2 Specimen Blood Performing Organization Address [facility] Phone Number MISYS [facility] * LIPASE (07/03/2018 12:37 AM CDT) Lipase 114 73 - 393 U/L [facility] 2 Specimen Blood Performing Organization Address [facility] Phone Number MISYS [facility] * 12 LEAD EKG (07/02/2018 10:23 PM CDT) 12 LEAD EKG FOR [facility] Test Date:2018-07-02 Pat Name: JENNIFER SILVA Department: Room: Gender: Linderman Machine Operator: [id number] :1950-1 12-11 Requested By: Order Number: Simona alejandra MD: Aldo GUERRERO Measurements Intervals [place] Rate: 79 P:38 FL: 148 QRS: 43 QRSD: 88 T:43 QT: 393 QTc:453 Interpretive Statements SINUS RHYTHM POSSIBLE RIGHT VENTRICULAR CONDUCTION DELAY OTHERWISE NORMAL ECG Electronically Signed On 07-03-18 07:42:14 CDT by Aldo GUERRERO Specimen Performing Organization Address [facility] Phone Number SMS * U/S ABDOMEN (06/28/2018 8:36 AM CDT) Specimen Impressions Performed At IMPRESSION: SMS Slightly increased [...] AM Performing Organization Address City/State/Zipcode Phone Number SMS after 04/16/2018 Insurance Type Payer Benefit Subscriber ID Effective Phone Address Plan / Dates Group [employer] [facility] [employer] xxxxxxxx 2018-P [phone] [id number] [place] [address] [place] (Home) [place] [id number] Jennifer Silva Personal/F Self [address] [place] (Home) [place] [phone]
[2019-04-17] MEDS ORDERED: ALBUTEROL SULF 0.083% NEB SOLN 3 ML NEB NEB STA (10:12)
[2019-04-17] MEDS ORDERED: IPRATROPIUM BROMIDE 0.02% 2.5 ML NEB NEB STA (10:12)
[2019-04-17] MEDS ORDERED: NITROGLYCERIN 2% OINT 1 GM PKT TOP ONE (10:30)
[2019-04-17 11:18] LABS: INR 0.85; PARTIAL THROMBOPLASTIN TIME 33.7 seconds (23.8-35.5); PROTHROMBIN TIME 12.1 seconds (11.9-14.5)
[2019-04-17 11:20] LABS: BASOPHILS % 0.6 % (0.0-1.0); EOSINOPHILS # (AUTO) 0.1 (0.0-0.4); EOSINOPHILS % 2.2 % (0.0-6.0); HEMATOCRIT 35.6 % (34.2-44.1); HEMOGLOBIN 11.7 g/dL (12.0-16.0); LYMPHOCYTES # (AUTO) 1.4 (1.0-3.2); LYMPHOCYTES % 27.6 % (18.0-39.1); MEAN CORPUSCULAR HEMOGLOBIN 27.1 pg (28-32); MEAN CORPUSCULAR HGB CONC 32.9 g/dL (31-35); MEAN CORPUSCULAR VOLUME 82.4 fL (81-99); MONOCYTES # (AUTO) 0.4 (0.2-0.8); MONOCYTES % 8.5 % (4.4-11.3); NEUTROPHILS % 60.7 % (38.7-80.0); PLATELET COUNT 142 x10e3/uL (140-360); RED BLOOD COUNT 4.32 x10e6/uL (3.6-5.1); RED CELL DISTRIBUTION WIDTH 13.7 % (11.7-14.4)
[2019-04-17 11:23] LABS: BILIRUBIN,URINE NEGATIVE (NEGATIVE); CLARITY,URINE CLEAR (CLEAR); COLOR,URINE YELLOW (YELLOW); KETONES,URINE NEGATIVE (NEGATIVE); LEUKOCYTE ESTERASE ,URINE NEGATIVE (NEGATIVE); NITRITE,URINE NEGATIVE (NEGATIVE); PROTEIN,URINE DIPSTICK NEGATIVE (NEGATIVE); URINE UROBILINOGEN 0.2 mg/dL (0.2 - 1)
[2019-04-17 11:28] LABS: ALANINE AMINOTRANSFERASE 12 IU/L (0-55); ALBUMIN 3.7 g/dL (3.5-5.0); ALBUMIN/GLOBULIN RATIO 1.2 (0.8-2.0); ALKALINE PHOSPHATASE 97 IU/L (40-150); ANION GAP 10.9 mmol/L (8-16); BLOOD UREA NITROGEN 13 mg/dL (7-26); BUN/CREATININE RATIO 18 (6-25); CALCIUM 9.3 mg/dL (8.4-10.2); CARBON DIOXIDE 29 mmol/L (22-29); CHLORIDE 103 mmol/L (98-107); CREATINE KINASE 44 IU/L (29-168); CREATININE, SERUM 0.74 mg/dL (0.57-1.11); EST GLOMERULAR FILTRATION RATE > 60 ML/MIN (60-); GLUCOSE 96 mg/dL (74-118); MAGNESIUM 2.3 MG/DL (1.3-2.1); POTASSIUM 3.9 mmol/L (3.5-5.1); SODIUM 139 mmol/L (136-145)
[2019-04-17] MEDS ORDERED: BUPROPION XL300 MG PO (11:44)
[2019-04-17] MEDS ORDERED: CITALOPRAM HBR20 MG PO (11:44)
[2019-04-17] MEDS ORDERED: SUBOXONE 8 MG-1 EAC2 SL (11:44)
[2019-04-17] MEDS ORDERED: DIVALPROEX SOD250 MG PO (11:44)
--- NOTE | 2019-04-17 11:46 | Diagnostic Imaging Report ---
EXAMINATION: CHEST 2 VIEWS INDICATION: Trouble breathing. COMPARISON: None FINDINGS: PA and lateral views TUBES and LINES: None. LUNGS: Lungs are well inflated. Lungs are clear. There is no evidence of pneumonia or pulmonary edema. PLEURA: No pleural effusion or pneumothorax. HEART AND MEDIASTINUM: The cardiomediastinal silhouette is unremarkable. BONES AND SOFT TISSUES: No acute osseous lesion. Healed right fifth rib fracture deformity. Soft tissues are unremarkable. UPPER ABDOMEN: No free air under the diaphragm. IMPRESSION: No acute thoracic abnormality. Signed by: Dr. Nico Martinez M.D. on 04/17/2019 11:43 AM
[2019-04-17 11:47] LABS: BACTERIA,URINE MODERATE /HPF; EPITHELIAL CELLS,URINE FEW /LPF; THYROID STIMULATING HORMONE 3.431 uIU/mL (0.350-4.940); WBC,URINE (MAN) 0-5 /HPF (0-5)
[2019-04-17 12:40] VITALS: BP 140/73
[2019-04-17] MEDS ORDERED: LISINOPRIL-HCT1 EAC2 PO (12:40)
== END 2019-04-17 12:47 | disposition home or self-care (01) ==
LOC: ER 10:06
DX: R60.0 Localized edema (principal); R06.00 Dyspnea, unspecified; I11.0 Hypertensive heart disease with heart failure; I50.9 Heart failure, unspecified; K21.9 Gastro-esophageal reflux disease without esophagitis
CPT/HCPCS: 36415; 71046; 80053; 81001; 82550; 82553; 83735; 83880; 84443; 84484; 85025; 85610; 85730; 87086; 93005; 94640; 99284

== ENCOUNTER 2020-01-07 20:58 | Emergency (ER) | payer MEDICARE ==
[~2020-01-07] VITALS: Ht 171.4 cm; Wt 88.9 kg
[~2020-01-07 20:58] MED LIST changes: +BUPROPION XL300 MG PO; +CITALOPRAM HBR20 MG PO; +DIVALPROEX SOD250 MG PO; +LISINOPRIL-HCT1 EAC2 PO; +SUBOXONE 8 MG-1 EAC2 SL
[2020-01-07 21:26] LABS: BASOPHILS % 0.5 % (0.0-1.0); EOSINOPHILS # (AUTO) 0.1 (0.0-0.4); EOSINOPHILS % 1.2 % (0.0-6.0); HEMATOCRIT 38.1 % (34.2-44.1); HEMOGLOBIN 12.1 g/dL (12.0-16.0); LYMPHOCYTES # (AUTO) 1.4 (1.0-3.2); LYMPHOCYTES % 24.5 % (18.0-39.1); MEAN CORPUSCULAR HEMOGLOBIN 26.7 pg (28-32); MEAN CORPUSCULAR HGB CONC 31.8 g/dL (31-35); MEAN CORPUSCULAR VOLUME 84.1 fL (81-99); MONOCYTES # (AUTO) 0.5 (0.2-0.8); MONOCYTES % 8.3 % (4.4-11.3); NEUTROPHILS # (AUTO) 3.8 (2.1-6.9); NEUTROPHILS % 65.2 % (38.7-80.0); PLATELET COUNT 169 x10e3/uL (140-360); RED BLOOD COUNT 4.53 x10e6/uL (3.6-5.1); RED CELL DISTRIBUTION WIDTH 13.7 % (11.7-14.4)
[2020-01-07 21:40] LABS: AMPHETAMINES SCREEN,URINE POSITIVE (NEGATIVE); PHENCYCLIDINE SCREEN,URINE NEGATIVE (NEGATIVE)
[2020-01-07 21:41] LABS: BENZODIAZEPINES SCREEN,URINE NEGATIVE (NEGATIVE)
[2020-01-07 21:48] LABS: ALANINE AMINOTRANSFERASE 13 IU/L (0-55); ALBUMIN 4.1 g/dL (3.5-5.0); ALBUMIN/GLOBULIN RATIO 1.2 (0.8-2.0); ALKALINE PHOSPHATASE 96 IU/L (40-150); ANION GAP 13.7 mmol/L (8-16); BLOOD UREA NITROGEN 21 mg/dL (7-26); BUN/CREATININE RATIO 29 (6-25); CALCIUM 9.4 mg/dL (8.4-10.2); CARBON DIOXIDE 28 mmol/L (22-29); CHLORIDE 103 mmol/L (98-107); CREATINE KINASE 60 IU/L (29-168); CREATININE, SERUM 0.72 mg/dL (0.57-1.11); EST GLOMERULAR FILTRATION RATE > 60 ML/MIN (60-); GLUCOSE 82 mg/dL (74-118); LIPASE 21 U/L (8-78); POTASSIUM 3.7 mmol/L (3.5-5.1); SODIUM 141 mmol/L (136-145)
[2020-01-07] MEDS: SODIUM CHLORIDE 0.9% 1000ML 1,000 ML IV STA (21:55)
[2020-01-07] MEDS ORDERED: SODIUM CHLORIDE 0.9% 50ML 50 ML ONE (22:07)
[2020-01-07] MEDS ORDERED: IOPAMIDOL 370 MG/ML 200 ML INFUS..BTL INJ ONE (22:07)
[2020-01-07] MEDS: HYDRALAZINE HCL 20 MG/ML VIAL IV STA (23:03)
--- NOTE | 2020-01-07 23:06 | Diagnostic Imaging Report ---
EXAMINATION: Head CT HISTORY: Headache, hypertension COMPARISON: None. TECHNIQUE: Multidetector axial images were obtained without contrast from the foramen magnum to the vertex . The images were reconstructed using brain and bone algorithms. Thin section brain images were reformatted into coronal and sagittal planes. Image quality: Motion/streaking artifact limits the evaluation of the skull base and posterior cranial fossa. Dose modulation, iterative reconstruction, and/or weight based adjustment of the mA/kV was utilized to reduce the radiation dose to as low as reasonably achievable. FINDINGS: Parenchyma: 1. No abnormal densities. 2. No mass or hemorrhage. No CT evidence of acute territorial vascular insult. Extra-axial spaces:No abnormal density. No extra-axial fluid collections Brain volume: Normal for age. Ventricles: No hydrocephalus or displacement. Arteries: No density suggestive of thrombus. Dural sinuses: No abnormal density. Foramen magnum: No mass, Chiari malformation, or basilar invagination. Sella: No obvious mass. Paranasal/mastoid sinuses: Imaged portions unremarkable. Skull/Scalp: No lytic or blastic lesions. No fractures. Right frontal craniotomy defect IMPRESSION: 1. No acute intracranial abnormalities, particularly no hemorrhage. 2. Right temporal craniotomy defect. Signed by: Dr. Aimee Plaza M.D. on 01/07/2020 11:03 PM
--- NOTE | 2020-01-07 23:43 | Diagnostic Imaging Report ---
EXAM: CT Abdomen and Pelvis WITH contrast INDICATION: Right upper quadrant pain COMPARISON: None. TECHNIQUE: Abdomen and pelvis were scanned utilizing a multidetector helical scanner from the lung base to the pubic symphysis after administration of IV contrast. Coronal and sagittal reformations were obtained. Routine protocol was performed. Scan was performed when during portal venous phase. IV CONTRAST: 100 mL of Isovue 370 ORAL CONTRAST: None COMPLICATIONS: None RADIATION DOSE: Total DLP: 611 mGy*cm Estimated effective dose: (DLP x 0.015 x size factor) mSv CTDIvol has been reviewed. It is below the limits set by the Radiation Protocol Committee (RPC). Dose modulation, iterative reconstruction, and/or weight based adjustment of the mA/kV was utilized to reduce the radiation dose to as low as reasonably achievable. FINDINGS: LINES and TUBES: None. LOWER THORAX: Unremarkable HEPATOBILIARY: No focal hepatic lesions. No biliary ductal dilation. GALLBLADDER: No radio-opaque stones or sludge. No wall thickening. SPLEEN: No splenomegaly. PANCREAS: Mild pancreatic atrophy. No focal masses or ductal dilatation. ADRENALS: No adrenal nodules KIDNEYS/URETERS: Kidneys enhance symmetrically. No hydronephrosis. No cystic or solid mass lesions. No stones. GI TRACT: No abnormal distention, wall thickening, or evidence of bowel obstruction. Mild mucosal hyperenhancement in the gastric body and antrum. Slight prominence of the gastric branches of the gastroepiploic arteries. Greater than average volume of stool in the transverse colon. Appendix is normal. PELVIC ORGANS/BLADDER: Hysterectomy. No adnexal masses. LYMPH NODES: No lymphadenopathy. VESSELS: Scattered mild arterial vascular calcifications. PERITONEUM / RETROPERITONEUM: No free air or fluid. BONES: Degenerative changes in the spine hips and pelvis. SOFT TISSUES: Unremarkable. IMPRESSION: Subtle findings which can be seen with mild gastritis. Colonic diverticulosis without diverticulitis. Greater than average volume of stool within the transverse colon could be due to constipation. Signed by: Jorge Alberto Hannah DO on 01/07/2020 11:40 PM
[2020-01-07 23:54] VITALS: BP 167/82
== END 2020-01-08 00:01 | disposition home or self-care (01) ==
LOC: ER 20:58
DX: R10.12 Left upper quadrant pain (principal); R11.2 Nausea with vomiting, unspecified; K59.00 Constipation, unspecified; I10 Essential (primary) hypertension; I50.9 Heart failure, unspecified; F41.9 Anxiety disorder, unspecified; F31.9 Bipolar disorder, unspecified
CPT/HCPCS: 36415; 70450; 74177; 80053; 80307; 80320; 82550; 82553; 83690; 84484; 85025; 93005; 99284; J7030; Q9967

== ENCOUNTER → 2020-08-14 | Outpatient (CLI) | payer MEDICARE ==
[~2020-08-14] MED LIST changes: +REGADENOSON 0.4 MG/5 ML SYR IV ONE
== END ==
LOC: NM 09:27
PROVIDERS: ATTEND Internal Medicine
DX: R07.9 Chest pain, unspecified (principal); R06.02 Shortness of breath
CPT/HCPCS: 78452; 93017; 93306; A9502

== ENCOUNTER → 2021-01-23 | Outpatient (CLI) | payer MEDICARE ==
[~2021-01-23] VITALS: Ht 170.2 cm; Wt 81.6 kg
[~2021-01-23] MED LIST changes: +GADOBENATE DIMEGLUMINE 1 ML IV ONE; +LORAZEPAM INJ 2 MG/ML VIAL ONE; -REGADENOSON 0.4 MG/5 ML SYR IV ONE; +SODIUM CHLORIDE 0.9% 50ML 50 ML ONE
[2021-01-23 09:30] LABS: BLOOD UREA NITROGEN 20 mg/dL (7-26); BUN/CREATININE RATIO 27 (6-25); CREATININE, SERUM 0.73 mg/dL (0.57-1.11); EST GLOMERULAR FILTRATION RATE > 60 ML/MIN (60-)
== END ==
LOC: MRI 08:26
PROVIDERS: ATTEND Pediatrics
DX: R10.12 Left upper quadrant pain (principal)
CPT/HCPCS: 36415; 72146; 72148; 74183; 82565; 84520; A9577; J2060

== ENCOUNTER 2025-03-30 20:40 | Inpatient (IN) | payer MEDICARE, OTHER ==
[~2025-03-30] VITALS: Ht 171.4 cm; Wt 69.9 kg
[~2025-03-30 20:40] MED LIST changes: -GADOBENATE DIMEGLUMINE 1 ML IV ONE; -LORAZEPAM INJ 2 MG/ML VIAL ONE; -SODIUM CHLORIDE 0.9% 50ML 50 ML ONE
[2025-03-30 20:55] VITALS: RESP 22; TEMP 98.3
[2025-03-30] MEDS ORDERED: SODIUM CHLORIDE FLUSH 10 ML SYR IV PRN (21:15)
[2025-03-30 21:25] LABS: BASOPHILS % 0.5 % (0.0-1.0); EOSINOPHILS # (AUTO) 0.1 (0.0-0.4); HEMATOCRIT 34.1 % (34.2-44.1); HEMOGLOBIN 10.9 g/dL (12.0-16.0); LYMPHOCYTES # (AUTO) 1.1 (1.0-3.2); LYMPHOCYTES % 25.9 % (18.0-39.1); MEAN CORPUSCULAR HEMOGLOBIN 26.5 pg (28-32); MEAN CORPUSCULAR VOLUME 82.8 fL (81-99); MONOCYTES # (AUTO) 0.4 (0.2-0.8); NEUTROPHILS # (AUTO) 2.5 (2.1-6.9); NEUTROPHILS % 61.4 % (38.7-80.0); PLATELET COUNT 122 x10e3/uL (140-360); RED BLOOD COUNT 4.12 x10e6/uL (3.6-5.1); RED CELL DISTRIBUTION WIDTH 15.2 % (11.7-14.4)
[2025-03-30] MEDS: HYDRALAZINE HCL 20 MG/ML VIAL IV STA (21:43)
[2025-03-30 21:55] LABS: ALANINE AMINOTRANSFERASE 15 IU/L (0-55); ALBUMIN 4.2 g/dL (3.5-5.0); ALBUMIN/GLOBULIN RATIO 1.4 (0.8-2.0); ALKALINE PHOSPHATASE 77 IU/L (40-150); ANION GAP 12.6 mmol/L (8-16); BILIRUBIN,TOTAL 0.7 mg/dL (0.2-1.2); BLOOD UREA NITROGEN 14 mg/dL (7-26); BUN/CREATININE RATIO 19 (6-25); CARBON DIOXIDE 27 mmol/L (22-29); CHLORIDE 102 mmol/L (98-107); CREATININE, SERUM 0.73 mg/dL (0.57-1.11); EST GLOMERULAR FILTRATION RATE 87 ML/MIN (>=60); GLUCOSE 76 mg/dL (74-118); POTASSIUM 3.6 mmol/L (3.5-5.1); SODIUM 138 mmol/L (136-145); TOTAL PROTEIN 7.1 g/dL (6.5-8.1)
[2025-03-30 22:00] VITALS: PULSE 77
[2025-03-30 22:01] LABS: TROPONIN I < 0.05 ng/mL (0.0-0.40)
[2025-03-30] MEDS: ONDANSETRON HCL INJ 2MG/ML 2ML 2 MG/ML VIAL IV STA (22:06)
[2025-03-30] MEDS ORDERED: SODIUM CHLORIDE FLUSH 10 ML SYR INJ PRN (22:15)
[2025-03-30] MEDS ORDERED: ONDANSETRON HCL INJ 2MG/ML 2ML 2 MG/ML VIAL IV PRN (22:15)
[2025-03-30 23:37] VITALS: BP 160/77; PULSE 94; RESP 20; TEMP 98.2; O2SAT 100
[2025-03-31] VITALS (10 sets, daily range): BP systolic 133–182; BP diastolic 61–96; PULSE 52–95; RESP 18–20; TEMP 98–98.4; O2SAT 98–100
[2025-03-31 06:48] LABS: BASOPHILS % 0.5 % (0.0-1.0); EOSINOPHILS # (AUTO) 0.1 (0.0-0.4); EOSINOPHILS % 2.7 % (0.0-6.0); HEMATOCRIT 31.4 % (34.2-44.1); HEMOGLOBIN 10.1 g/dL (12.0-16.0); LYMPHOCYTES % 27.9 % (18.0-39.1); MEAN CORPUSCULAR HEMOGLOBIN 26.4 pg (28-32); MEAN CORPUSCULAR HGB CONC 32.2 g/dL (31-35); MONOCYTES # (AUTO) 0.4 (0.2-0.8); MONOCYTES % 11.2 % (4.4-11.3); NEUTROPHILS # (AUTO) 2.1 (2.1-6.9); NEUTROPHILS % 57.7 % (38.7-80.0); PLATELET COUNT 113 x10e3/uL (140-360); RED BLOOD COUNT 3.83 x10e6/uL (3.6-5.1); RED CELL DISTRIBUTION WIDTH 15.2 % (11.7-14.4); WHITE BLOOD COUNT 3.65 x10e3/uL (4.8-10.8)
[2025-03-31 07:12] LABS: ALBUMIN 3.2 g/dL (3.5-5.0); ALBUMIN/GLOBULIN RATIO 1.3 (0.8-2.0); ANION GAP 11.3 mmol/L (8-16); BILIRUBIN,TOTAL 0.7 mg/dL (0.2-1.2); CALCIUM 8.1 mg/dL (8.4-10.2); CREATININE, SERUM 0.71 mg/dL (0.57-1.11); TOTAL PROTEIN 5.7 g/dL (6.5-8.1)
[2025-03-31 07:21] LABS: POTASSIUM 3.3 mmol/L (3.5-5.1)
[2025-03-31 07:22] LABS: TROPONIN I 0.005 ng/mL (0-0.300)
[2025-03-31] MEDS: HYDRALAZINE HCL 20 MG/ML VIAL IV PRN (09:28)
[2025-03-31] MEDS ORDERED: OMEPRAZOLE40 MG PO (09:32)
[2025-03-31] MEDS ORDERED: IBUPROFEN200 MG PO (09:32)
[2025-03-31] MEDS ORDERED: LISINOPRIL10 MG PO (09:32)
[2025-03-31] MEDS: LISINOPRIL 20 MG TAB PO SCH (13:03)
[2025-03-31] MEDS: HYDROCODONE/APAP 10MG-325MG TAB PO PRN (13:03)
[2025-03-31] MEDS: METOPROLOL TARTRATE 25 MG TAB PO SCH (13:04)
[2025-03-31 15:37] LABS: TROPONIN I 0.009 ng/mL (0-0.300)
[2025-04-01 03:15] VITALS: BP 175/87; PULSE 58; RESP 18; TEMP 98.2; O2SAT 98
[2025-04-01 08:08] VITALS: BP 114/51; PULSE 77; RESP 18; TEMP 98; O2SAT 97
[2025-04-01] MEDS: PANTOPRAZOLE SOD 40 MG TABEC PO SCH (10:18)
[2025-04-01] MEDS: FUROSEMIDE INJ 10 MG/ML 2 ML VIAL IV PRN (10:19)
[2025-04-01 11:49] VITALS: BP 142/68; PULSE 75; RESP 17; TEMP 98.6; O2SAT 100
[2025-04-01 11:55] VITALS: BP 142/68; PULSE 75; RESP 17; TEMP 98.6; O2SAT 100
[2025-04-01] MEDS: TRAMADOL HCL 50 MG TAB PO PRN (14:24)
== END 2025-04-01 14:55 | disposition left against medical advice (07) | DRG 291 ==
LOC: ER 20:45 → ERHOLD 22:08 → MED/SURG3 23:32 → OBSVTOIN 04-01 09:48
PROVIDERS: ADMIT Internal Medicine; ATTEND Internal Medicine
DX: I11.0 Hypertensive heart disease with heart failure (principal); I50.23 Acute on chronic systolic (congestive) heart failure; L03.116 Cellulitis of left lower limb; L97.528 Non-pressure chronic ulcer of other part of left foot with other specified severity; M19.90 Unspecified osteoarthritis, unspecified site; D64.9 Anemia, unspecified; I73.9 Peripheral vascular disease, unspecified; D69.6 Thrombocytopenia, unspecified; F41.9 Anxiety disorder, unspecified; F31.9 Bipolar disorder, unspecified; K21.9 Gastro-esophageal reflux disease without esophagitis; I16.0 Hypertensive urgency; R11.2 Nausea with vomiting, unspecified; F44.81 Dissociative identity disorder; Z79.82 Long term (current) use of aspirin; Z90.710 Acquired absence of both cervix and uterus; Z87.891 Personal history of nicotine dependence
CPT/HCPCS: 36415; 70450; 71045; 80053; 82550; 83880; 84484; 85025; 93925; 94760; 99252; 99284; G0378; J0360; J0690; J1940; J2405; J2470

== ENCOUNTER 2025-07-31 19:16 | Emergency (ER) | payer MEDICARE, OTHER ==
[~2025-07-31] VITALS: Ht 171.4 cm; Wt 69.9 kg
[~2025-07-31 19:16] MED LIST changes: +IBUPROFEN200 MG PO; +LISINOPRIL10 MG PO; +OMEPRAZOLE40 MG PO
[2025-07-31 19:17] VITALS: TEMP 98.4
[2025-07-31] MEDS: METOPROLOL TARTRATE 25 MG TAB PO ONE (21:18)
[2025-07-31 21:45] VITALS: PULSE 110; RESP 17
[2025-07-31 22:54] VITALS: BP 132/78; PULSE 105; RESP 17; TEMP 97.8; O2SAT 96
== END 2025-07-31 23:21 | disposition home or self-care (01) ==
LOC: ER 21:04
DX: S00.83XA Contusion of other part of head, initial encounter (principal); S20.212A Contusion of left front wall of thorax, initial encounter; R51.9 Headache, unspecified; R11.0 Nausea; W18.39XA Other fall on same level, initial encounter; Y93.E5 Activity, floor mopping and cleaning; Y92.89 Other specified places as the place of occurrence of the external cause; I48.20 Chronic atrial fibrillation, unspecified; I10 Essential (primary) hypertension; I50.9 Heart failure, unspecified; K21.9 Gastro-esophageal reflux disease without esophagitis; F31.9 Bipolar disorder, unspecified; F41.9 Anxiety disorder, unspecified
CPT/HCPCS: 70450; 70486; 71250; 72125; 99283